=== PATIENT | male | born 1940 | race Caucasian/White ===

== ENCOUNTER → 2016-12-31 | Outpatient (CLI) | payer MEDICARE ==
[~2016-12-31] MED LIST: ASPIRIN325 MG PO; COREG25 MG PO; GLUCOPHAGE1000 MG PO; LIPITOR40 MG PO; NORVASC5 MG PO; PRINIVIL (ZESTR20 MG PO
== END | disposition disaster alternative care site (69) ==
LOC: GOPD 12-27 09:00
PROC: 0BBJ3ZX Excision of Left Lower Lung Lobe, Percutaneous Approach, Diagnostic (ICD-10-PCS; principal; 2016-12-31)
DX: J84.10 Pulmonary fibrosis, unspecified (principal); Z01.818 Encounter for other preprocedural examination; J98.4 Other disorders of lung; R91.8 Other nonspecific abnormal finding of lung field; R91.1 Solitary pulmonary nodule; R77.8 Other specified abnormalities of plasma proteins
CPT/HCPCS: J2001; J7030

== ENCOUNTER → 2017-03-14 | Outpatient (CLI) | payer MEDICARE | END | disposition disaster alternative care site (69) | LOC: GKIC 03-12 12:00 | DX: R77.8 Other specified abnormalities of plasma proteins (principal); R91.1 Solitary pulmonary nodule | CPT/HCPCS: A9552 ==

== ENCOUNTER → 2017-03-20 | Outpatient (CLI) | payer MEDICARE ==
[2017-03-20 13:12] LABS: BASOPHIL # 0.1 K/uL (0.0-0.2); BASOPHIL % 0.8 %; EOSINOPHIL # 0.1 K/uL (0.0-0.5); EOSINOPHIL % 1.1 %; HEMOGLOBIN 12.9 g/dL (11.0-16.0); IMMATURE GRANULOCYTE % 0.3 %; LYMPHOCYTE # 1.7 K/uL (0.8-4.0); LYMPHOCYTE % 26.3 %; MCH 31.3 pg (27.0-34.0); MCHC 33.9 gm/dL (32.0-36.5); MCV 92.2 fl (83.0-98.0); MONOCYTE # 0.7 K/uL (0.0-1.0); MONOCYTE % 10.4 %; MPV 9.1 fl (9.4-12.4); NEUTROPHIL % 61.1 %; NRBC % 0 /100WBC (0-0.00); PLATELET COUNT 314 K/uL (150-450); RBC 4.12 M/uL (3.50-5.50); RDW-CV 13.7 % (11.9-14.6); WBC 6.5 K/uL (4.0-11.0)
== END | disposition disaster alternative care site (69) ==
LOC: GOPD 03-18
PROVIDERS: Internal Medicine Hematology & Oncology
PROC: 0BBJ3ZX Excision of Left Lower Lung Lobe, Percutaneous Approach, Diagnostic (ICD-10-PCS; principal; 2017-03-20)
DX: R91.1 Solitary pulmonary nodule (principal); C34.92 Malignant neoplasm of unspecified part of left bronchus or lung; R77.8 Other specified abnormalities of plasma proteins
CPT/HCPCS: J2001; J2250; J3010

== ENCOUNTER → 2017-04-01 | Outpatient (CLI) | payer MEDICARE | END | disposition disaster alternative care site (69) | LOC: GRAD 10:28 | DX: C34.32 Malignant neoplasm of lower lobe, left bronchus or lung (principal); G31.9 Degenerative disease of nervous system, unspecified; R90.82 White matter disease, unspecified; J32.0 Chronic maxillary sinusitis; R77.8 Other specified abnormalities of plasma proteins; R91.1 Solitary pulmonary nodule | CPT/HCPCS: A9577 ==

== ENCOUNTER → 2017-04-02 | Outpatient (CLI) | payer MEDICARE ==
--- NOTE | ~2017-04-02 | PUL ---
PATIENT'S NAME: KAVON COLUNGA V [facility] AGE: 76 Y [address] ROOM: [place] [id number] LOCATION: [facility] ADMIT DATE: 04/02/2017 Pulmonary DISCHARGE DATE: FAMILY PHYSICIAN: Beck Mendoza MD ATTENDING PHYSICIAN: Rohit Randall NAME OF PROCEDURE: Pulmonary Function Test DATE OF PROCEDURE: April 02, 2017 TECH: ANDREW Ramirez REASON FOR EXAM: Shortness of breath PROCEDURE PERFORMED: Spirometry with bronchodilator assessment. Measurement of maximum voluntary ventilation. Measurement of diffusion capacity. Measurement of lung volumes. RESULTS: The spirometric data showed FVC was 3.29 L, 75% of predicted. FEV1 was 1.9 liters, 60% of predicted. FEV1/FVC was 58%. Post bronchodilator FVC was 3.27 L, 75% of predicted. Post bronchodilator, FEV1 was 2.28 liters, 65% of predicted. Maximum voluntary ventilation was 72 L/minute. The above data did not change significantly following the administration of bronchodilator. Diffusing capacity not adjusted for hemoglobin was 75%. The single breath alveolar volume was 3.94 L, which is a poor estimate of the total lung capacity. Lung volume measurements showed total lung capacity was 5.83 L, 87% of predicted. Functional residual capacity was 3.5 L, 94% of predicted. Residual volume was 2.48 L, 92% of predicted. The flow volume curve revealed obstructive pattern. PHYSICIAN INTERPRETATION: The above data and corresponding flow volume curve shows moderate airflow obstruction, there was no significant bronchodilator response, lung volumes are normal without any evidence of hyperexpansion or gas trapping, and there was no gas transfer impairment. MD BARRERA WHEELER/[place] /[id number] dtt: 04/05/17 RY Aaron MEENAKSHI dtd: 04/03/17 [id number]
== END | disposition disaster alternative care site (69) ==
LOC: GRTH 12:37
DX: R06.02 Shortness of breath (principal); J98.8 Other specified respiratory disorders; R91.1 Solitary pulmonary nodule; R77.8 Other specified abnormalities of plasma proteins